=== PATIENT | male | born 1940 | race Caucasian/White ===

== ENCOUNTER 2024-09-27 18:59 | Emergency (ER) | payer MEDICARE, OTHER, SELFPAY ==
[2024-09-27 19:03] VITALS: BP 146/90; PULSE 96; TEMP 36.6; O2SAT 95; BMI 28.1
[2024-09-27] MEDS: BACITRACIN 0.9 GM PACKET 1 PACKET TOPICAL (20:04)
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
== END 2024-09-27 20:10 | disposition home or self-care (01) ==
PROVIDERS: Emergency Provider Internal Medicine; PCP Internal Medicine
DX: T23.222A Burn of second degree of single left finger (nail) except thumb, initial encounter (principal); X08.8XXA Exposure to other specified smoke, fire and flames, initial encounter
CPT/HCPCS: 73130; 87070; 87075; 99284